=== PATIENT | male | born 1980 | race Caucasian/White ===

== ENCOUNTER 2017-10-15 14:03 | Emergency (ER) | payer SELFPAY ==
--- NOTE | 2017-10-15 15:29 | RAD REPORT ---
EXAM DESCRIPTION: RAD - Foot Left 3 View - 10/15/2017 3:22 pm CLINICAL HISTORY: PAIN COMPARISON: No comparisons FINDINGS: Moderate posterior calcaneal spur is noted. No fracture, dislocation or aggressive marrow lesion.
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
== END 2017-10-15 16:15 | disposition home or self-care (01) ==
LOC: ER 14:03
DX: M79.672 Pain in left foot (principal); Z88.0 Allergy status to penicillin
CPT/HCPCS: 99283

== ENCOUNTER 2017-11-29 22:11 | Emergency (ER) | payer SELFPAY ==
--- OUTSIDE RECORDS SUMMARY | 2017-11-29 22:14 | XMS REPORT ---
:1980 [facility] Address [address] [place] [address] Care Team Providers Name Role Phone UNKNOWN, REFFERING Primary Care Provider Unavailable MOHIT STACY M.D. Unavailable Unavailable Problems This patient has no known problems. Allergies, Adverse Reactions, Alerts This patient has no known allergies or adverse reactions. Medications This patient has no known medications. Results Test Description Test Time Test Comments Text Results Atomic Results Result Comments RPR, Qual 2017-04-24 12:17:00 Test Item Value Reference Range Comments RPR (test code=RPR) Non-Reactive Non-Reactive Thyroid Stimulating Hormone (TSH)2017-04-24 08:45:00 Test Item Value Reference Range Comments TSH (test code=TSH) 2.30 mIU/mL 0.270-4.200 Comprehensive Metabolic [id number] 08:37:00 Test Item Value Reference Range Comments Sodium (test code=NA) 136 mmol/L 135-145 Potassium (test code=K) 4.5 mmol/L 3.5-5.1 Chloride (test code=CL) 98 mmol/L 98-105 Carbon Dioxide (test 31 mmol/L 22-29 code=CO2) Glucose (test code=GLU) 95 mg/dL 70-115 Blood Urea Nitrogen 20 mg/dL 6-20 (test code=BUN) Creatinine (test 1.0 mg/dL 0.7-1.2 code=CREAT) Calcium (test code=CA) 9.6 mg/dL 8.3-10.5 Prot Total (test 7.6 g/dL 6.4-8.3 code=TP) Albumin (test code=ALB) 4.3 g/dL 3.5-5.2 A/G Ratio (test 1.3 Ratio code=AGRATIO) Globulin (test 3.3 2.9-3.1 code=GLOB) Bili Total (test 0.6 mg/dL 0.1-0.9 code=TBIL) Alk Phos (test 117 U/L 40-129 code=APHOS) AST (test code=AST) 26 U/L 1-40 ALT (test code=ALT) 18 U/L 1-41 BUN/Creatinine Ratio 20.0 (test code=BCRATIO) Anion Gap (test 7 mmol/L 7-16 code=AGAP) Estimated GFR (test >60 mL/min/1.73m2 eGFR (estimated Glomerular code=GFR) Filtration Rate) is an estimated value,calculated from the patient's serum creatinine using the MDRD equation.It is NOT the patient's actual GFR. The eGFR provides a more clinicallyuseful measure of kidney disease than serum creatinine alone.This calculation takes sex and race into account, if the informationis provided. If the race is not provided, and the patient isAfrican-Gibralt[place], multiply by 1.212. If sex is not provided, and thepatient is female, multiply by 0.742. Results for patients <18 years ofage have not been validated by the MDRD study and should be interpretedwith caution.eGFR Result Interpretation:eGFR > or=60 is in the Normal RangeeGFR < 60 may mean kidney diseaseeGFR < 15 may mean kidney failureRanges recommended by the National Kidney Foundation,http://nkdep.nih .gov Lipid [id number] 08:36:00 Test Item Value Reference Range Comments Cholesterol (test 187 mg/dL 0-200 code=CHOL) Triglycerides (test 169 mg/dL 9-200 code=TRIG) HDL (test code=HDL) 56 mg/dL 40-60 Chol/HDL (test 3.3 Ratio 0.0-5.0 code=CHOLPHDL) LDL, Calculated (test 97 0-130 (NOTE)RISK OF HEART code=LDLC) DISEASEPublished by [place] Heart AssociationAnalyte Optimal Boderline Increased RiskCHOL <200 200-239 >240TRIG <150 150-199 >200HDL Male: >60 <40HDL Female: >60 <50LDL <100 130-159 >160LDL NEAR OPTIMAL IS 100-129 VLDL (test code=VLDL) 34 mg/dL 5-40 LDL/HDL (test code=LDLPHDL) 2
[2017-11-29] MEDS ORDERED: TETANUS & DIPHTHERIA TOX,ADULT 0.5 ML VIAL ONE (22:49)
[2017-11-29] MEDS ORDERED: DERMABOND SKIN ADHESIVE TOP ONE (22:49)
[2017-11-30] MEDS ORDERED: NA CHLORIDE 0.9% 1,000 ML ONE (00:02)
[2017-11-30] MEDS ORDERED: KCL 20 MEQ/100 mL IVPB 20 MEQ/100 ML BAG IV ONE (00:02)
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
--- NOTE | 2017-11-30 00:13 | EDPHYS ---
Physician Documentation [facility] Name: Redd Wagner Age: 37 yrs Sex: Male : 1980 Arrival Date: 11/29/2017 Time: 22:17 Bed 8 Private MD: ED Physician Migue Adams HPI: 11/29 22:51 This 37 yrs old Male presents to ER via Law Enforcement with complaints of rn facial trauma. 22:51 The patient or guardian reports abrasion, injury, pain, swelling. The complaints affect rn the forehead, right eye, right cheek, nose, mouth and chin. Context of injury: The problem was sustained outdoors, resulted from a fall. Onset: The symptoms/episode began/occurred just prior to arrival. Severity of symptoms: At their worst the symptoms were mild, in the emergency department the symptoms have improved. The patient has not experienced similar symptoms in the past. Reports not sure what happened, police tell us he fell, reports alcohol earlier in day but not intoxicated, + abrasions to face and extremities, no LOC, not on blood thinners, no medical problems. No vision changes, no oral trauma, doesn't feel like anything broken.. Historical: - Allergies: 22:25 PENICILLINS; fc - Home Meds: 22:25 None [Active]; fc - PMHx: 22:25 Anxiety; Depression; Hypertension; fc - PSHx: 22:25 None; fc - Immunization history:: Last tetanus immunization: unknown. - Social history:: Smoking status: Patient/guardian denies using tobacco, Patient uses alcohol, occasionally. - Ebola Screening: : Patient negative for fever greater than or equal to 101.5 degrees Fahrenheit, and additional compatible Ebola Virus Disease symptoms Patient denies exposure to infectious person Patient denies travel to an Ebola-affected area in the 21 days before illness onset. - Family history:: not pertinent. - Hospitalizations: : No recent hospitalization is reported. ROS: 22:51 Constitutional: Negative for fever, chills, and weight loss, Eyes: Negative for injury, rn pain, redness, and discharge, Neck: Negative for injury, pain, and swelling, Cardiovascular: Negative for chest pain, palpitations, and edema, Respiratory: Negative for shortness of breath, cough, wheezing, and pleuritic chest pain, Abdomen/GI: Negative for abdominal pain, nausea, vomiting, diarrhea, and constipation, MS/Extremity: Negative for injury and deformity, Skin: + abrasions Neuro: Negative for headache, weakness, numbness, tingling, and seizure. Exam: 22:51 Constitutional: This is a well developed, well nourished patient who is awake, alert, rn and in no acute distress. Head/Face: multiple abrasions to face including nose/forehead/chin/nasal bridge, right supraorbital region with abrasion and small, subcentimeter open wound, no active bleeding, no foreign body, no fat protrusion. Eyes: Pupils equal round and reactive to light, extra-ocular motions intact. Lids and lashes normal. Neck: Trachea midline, no thyromegaly or masses palpated, and no cervical lymphadenopathy. Supple, full range of motion without nuchal rigidity, or vertebral point tenderness. No Meningismus. Cardiovascular: Regular rate and rhythm with a normal S1 and S2. No gallops, murmurs, or rubs. Normal PMI, no JVD. No pulse deficits. Respiratory: Lungs have equal breath sounds bilaterally, clear to auscultation and percussion. No rales, rhonchi or wheezes noted. No increased work of breathing, no retractions or nasal flaring. Abdomen/GI: Soft, non-tender, with normal bowel sounds. No distension or tympany. No guarding or rebound. No evidence of tenderness throughout. MS/ Extremity: Pulses equal, no cyanosis. Neurovascular intact. Full, normal range of motion. Equal circumference. Multiple abrasions to extremities, no deformities. Neuro: Awake and alert, GCS 15, oriented to person, place, time, and situation. Cranial nerves II-XII grossly intact. Motor strength 5/5 in all extremities. Sensory grossly intact. Cerebellar exam normal. Normal gait. Vital Signs: 22:10 BP 149 / 88; Pulse 103; Resp 18; Temp 98.5(O); Pulse Ox 96% on R/A; Weight 73.48 kg fc (R); Height 6 ft. 0 in. (182.88 cm) (R); Pain 0/10; 23:30 BP 129 / 99; Pulse 95; Resp 16; Pulse Ox 99% on R/A; ao 11/30 00:33 BP 94 / 52; Pulse 75; Resp 16; Temp 98.3; Pulse Ox 99% on R/A; Pain 0/10; ak1 11/29 22:10 Body Mass Index 21.97 (73.48 kg, 182.88 cm) fc Ben Coma Score: 11/29 22:51 Eye Response: spontaneous(4). Verbal Response: oriented(5). Motor Response: obeys rn commands(6). Total: 15. 11/30 00:11 Eye Response: spontaneous(4). Verbal Response: oriented(5). Motor Response: obeys rn commands(6). Total: 15. Laceration: 00:11 Wound Repair of 0.5cm ( 0.2in ) subcutaneous laceration to face. Distal rn neuro/vascular/tendon intact. Wound prep: Extensive cleansing by nurse, Wound explored. Skin closed with 1 thin layer Adhesive skin closure using Dermabond. Dressed with bandaid. Patient tolerated well. MDM: 11/29 22:21 Patient medically screened. rn 11/30 00:11 Differential diagnosis: Contusion of Hematoma on Laceration of Intracranial bleed- rn Concussion cerebral contusion. Data reviewed: vital signs, nurses notes, radiologic studies, and as a result, I will discharge patient. Counseling: I had a detailed discussion with the patient and/or guardian regarding: the historical points, exam findings, and any diagnostic results supporting the discharge/admit diagnosis, radiology results, the need for outpatient follow up, to return to the emergency department if symptoms worsen or persist or if there are any questions or concerns that arise at home. Special discussion: I discussed with the patient/guardian in detail that at this point there is no indication for admission to the hospital. It is understood, however, that if the symptoms persist or worsen the patient needs to return immediately for re-evaluation. 11/29 22:34 Order name: CT Head Brain wo Cont rn 11/29 22:34 Order name: CT Facial Bones W/O Con rn 11/29 22:39 Order name: Wound Care; Complete Time: 00:36 rn 11/29 22:39 Order name: Dermabond; Complete Time: 00:36 rn Administered Medications: 11/29 22:49 Drug: Tetanus-Diphtheria Toxoid Adult 0.5 ml {Shower Maid: [employer]. Exp: ao 12/24/2018. Lot #: [id number]. } Route: IM; Site: right deltoid; 11/30 00:36 Follow up: Response: No adverse reaction ao Disposition: 11/30/17 00:13 Discharged to Home. Impression: Facial abrasions, Facial laceration, Contusion of scalp. - Condition is Stable. - Discharge Instructions: Abrasion, Contusion, Tissue Adhesive Wound Care. - Medication Reconciliation Form, Thank You Letter, Antibiotic Education, Prescription Opioid Use form. - Follow up: Private Physician; When: As needed; Reason: Recheck today's complaints, Re-evaluation by your physician. - Problem is new. - Symptoms have improved. Signatures: Dispatcher [employer] EDMS Reina Drew RN RN fc Nieto, Roman, MD MD rn Krenek, Amber, RN RN ak1 Peña Broussard RN RN ao Corrections: (The following items were deleted from the chart) 00:51 00:13 11/30/2017 00:13 Discharged to Home. Impression: Facial abrasions; Facial ak1 laceration; Contusion of scalp. Condition is Stable. Forms are Medication Reconciliation Form, Thank You Letter, Antibiotic Education, Prescription Opioid Use. Follow up: Private Physician; When: As needed; Reason: Recheck today's complaints, Re-evaluation by your physician. Problem is new. Symptoms have improved. rn
--- NOTE | 2017-11-30 06:55 | RAD REPORT ---
EXAM DESCRIPTION: CT - Head Brain Wo Cont - 11/30/2017 5:31 am CLINICAL HISTORY: Fall, head and face trauma A preliminary report was provided at the time of the study and reviewed prior to final report. COMPARISON: None. TECHNIQUE: Axial 5 mm thick images of the head were obtained without IV contrast. All CT scans are performed using dose optimization technique as appropriate and may include automated exposure control or mA/KV adjustment according to patient size. FINDINGS: No intracranial hemorrhage, mass, edema or shift of mid-line structures. No acute infarcti on changes seen. No abnormal extra-axial fluid collections. Ventricles are normal. Mastoid air cells are clear. Facial bones, orbits and sinuses are separately detailed. No acute bony findings. IMPRESSION: Negative non-contrast CT head examination. Facial bones, orbits and sinuses are separat [place] detailed.
--- NOTE | 2017-11-30 07:54 | RAD REPORT ---
EXAM DESCRIPTION: CT - Facial Bones W/ Mpr - 11/30/2017 5:33 am CLINICAL HISTORY: Fall, right-sided facial trauma A preliminary report was provided at the time of the study and reviewed prior to final report. COMPARISON: None. TECHNIQUE: Axial 2 millimeter thick images of the facial bones were obtained with sagittal and coron al reconstruction imaging. All CT scans are performed using dose optimization technique as appropriate and may include automated exposure control or mA/KV adjustment according to patient size. FINDINGS: Contusion or edema changes are seen in the nasal soft tissues and overlying the right maxi lla. No foreign body. Nondisplaced nasal bone fracture is suspected. No acute nasal septum finding. N o other evidence for facial bone fracture. Condyles of the mandible are normally positioned. Mastoid air cells and paranasal sinuses are clear. No globe or orbital content abnormality. IMPRESSION: Suspected nondisplaced, nonangulated nasal bone fracture.
== END 2017-11-30 00:51 | disposition home or self-care (01) ==
LOC: ER 22:11
PROC: 0JQ10ZZ Repair Face Subcutaneous Tissue and Fascia, Open Approach (ICD-10-PCS; principal; 2017-11-30)
DX: S01.81XA Laceration without foreign body of other part of head, initial encounter (principal); S00.03XA Contusion of scalp, initial encounter; S00.81XA Abrasion of other part of head, initial encounter; W19.XXXA Unspecified fall, initial encounter; Y93.89 Activity, other specified; Y92.9 Unspecified place or not applicable; Z88.0 Allergy status to penicillin; Z23 Encounter for immunization
CPT/HCPCS: 70450; 70486; 76377; 90714; 99284; J7030

== ENCOUNTER 2018-03-08 19:42 | Observation (INO) | payer SELFPAY ==
--- OUTSIDE RECORDS SUMMARY | 2018-03-08 19:44 | XMS REPORT ---
:1980 Author Organization [facility] Address [address] [place] [address] Care Team Providers Name Role Phone UNKNOWN, [...] (test code=TSH) 2.30 mIU/mL 0.270-4.200 Comprehensive Metabolic [id number] 08:37:00 Test Item Value Reference Range Comments [...] race is not provided, and the patient isAfrican-Solomon Islander, multiply by 1.212. If sex is not provided, and thepatient is female, multiply by 0.742. Results for patients <18 years ofage have not been validated by the MDRD study and should be interpretedwith caution.eGFR Result Interpretation:eGFR > or=60 is in the Normal RangeeGFR < 60 may mean kidney diseaseeGFR < 15 may mean kidney failureRanges recommended by the National Kidney Foundation,http://nkdep.nih .gov Lipid [id number] 08:36:00 Test Item Value Reference Range Comments Cholesterol (test 187 mg/dL 0-200 code=CHOL) Triglycerides (test 169 mg/dL 9-200 code=TRIG) HDL (test code=HDL) 56 mg/dL 40-60 Chol/HDL (test 3.3 Ratio 0.0-5.0 code=CHOLPHDL) LDL, Calculated (test 97 0-130 (NOTE)RISK OF HEART code=LDLC) DISEASEPublished by Solomon Islander Heart AssociationAnalyte Optimal Boderline Increased RiskCHOL <200 200-239 >240TRIG <150 150-199 >200HDL Male: >60 <40HDL Female: >60 <50LDL <100 130-159 >160LDL NEAR OPTIMAL IS 100-129 VLDL (test code=VLDL) 34 mg/dL 5-40 LDL/HDL (test code=LDLPHDL) 2
[2018-03-08 20:37] LABS: Absolute Lymphocytes (CBC) 2.8 K/uL (0.7-4.9); Absolute Monocytes 0.9 K/uL (0.1-1.3); Absolute Neutrophil 9.3 K/uL (1.8-8.0); Basophils % 0.5 % (0-1.3); Eosinophils % 0.6 % (0-4.4); Hematocrit 43.6 % (39.6-49.0); Lymphocytes % 21.4 % (15.3-44.8); MCH 28.6 pg (27.0-35.0); MCV 83.1 fL (80-100); Monocytes % 6.6 % (3.3-12.3); RBC Red Blood Cell Count 5.24 M/uL (4.33-5.43)
[2018-03-08] MEDS ORDERED: NA CHLORIDE 0.9% 1,000 ML ONE (20:56)
--- NOTE | 2018-03-08 20:56 | RAD REPORT ---
EXAM DESCRIPTION: RAD - Chest Single View - 03/08/2018 8:47 pm CLINICAL HISTORY: CHEST PAIN Chest pain. COMPARISON: Chest Single View dated 10/17/2016; Chest Single View dated 09/16/2016; Chest Single View dated 09/14/2016; Chest Single View dated 02/23/2016 FINDINGS: Portable technique limits examination quality. The lungs are grossly clear. The heart is normal in size. No displaced fractures. IMPRESSION: No acute intrathoracic process suspected.
[2018-03-08 21:01] LABS: BUN Blood Urea Nitrogen 12 mg/dL (7-18); Bicarbonate 22 mmol/L (21-32); Creatine Phosphokinase 880 U/L (39-308); Glucose Level 83 mg/dL (74-106); Sodium Level 138 mmol/L (136-145); Troponin (Emerg Dept Use Only) < 0.02 ng/mL (0.0-0.045)
--- NOTE | 2018-03-08 21:09 | EDPHYS ---
Physician Documentation [facility] Name: Redd Wagner Age: 38 yrs Sex: Male : 1980 Arrival Date: 03/08/2018 Time: 19:45 Bed 23 Private MD: ED Physician Kvng Schroeder HPI: 03/08 20:50 This 38 yrs old Male presents to ER via EMS with complaints of Chest Pain. gs 20:50 The patient or guardian reports chest pain that is located primarily in the anterior gs chest wall. The pain does not radiate. Associated signs and symptoms: Pertinent positives: cough, Pertinent negatives: shortness of breath. The chest pain is described as a heaviness. Duration: The patient or guardian reports multiple episodes, that are intermittent, that wax and wane, with no pattern. Modifying factors: The symptoms are alleviated by nothing. the symptoms are aggravated by nothing. Severity of pain: At its worst the pain was moderate in the emergency department the pain has improved markedly. The patient has experienced similar episodes in the past, multiple times. onset 2 weeks ago. Historical: - Allergies: 19:48 PENICILLINS; mg2 - Home Meds: 19:48 None [Active]; mg2 - PMHx: 19:48 Anxiety; Hypertension; Depression; mg2 - PSHx: 19:48 None; mg2 - Immunization history:: Flu vaccine is not up to date. - Social history:: Smoking status: Patient/guardian denies using tobacco, Patient uses alcohol, patient/guardian reports recent binge of alcohol consumption. street drugs, cocaine. - Ebola Screening: : No symptoms or risks identified at this time. ROS: 20:50 All other systems are negative. gs Exam: 20:50 Head/Face: Normocephalic, atraumatic. Eyes: Pupils equal round and reactive to light, gs extra-ocular motions intact. Lids and lashes normal. Conjunctiva and sclera are non-icteric and not injected. Cornea within normal limits. Periorbital areas with no swelling, redness, or edema. ENT: Nares patent. No nasal discharge, no septal abnormalities noted. Tympanic membranes are normal and external auditory canals are clear. Oropharynx with no redness, swelling, or masses, exudates, or evidence of obstruction, uvula midline. Mucous membranes moist. Neck: Trachea midline, no thyromegaly or masses palpated, and no cervical lymphadenopathy. Supple, full range of motion without nuchal rigidity, or vertebral point tenderness. No Meningismus. Chest/axilla: Normal chest wall appearance and motion. Nontender with no deformity. No lesions are appreciated. Cardiovascular: Regular rate and rhythm with a normal S1 and S2. No gallops, murmurs, or rubs. Normal PMI, no JVD. No pulse deficits. Respiratory: Lungs have equal breath sounds bilaterally, clear to auscultation and percussion. No rales, rhonchi or wheezes noted. No increased work of breathing, no retractions or nasal flaring. Abdomen/GI: Soft, non-tender, with normal bowel sounds. No distension or tympany. No guarding or rebound. No evidence of tenderness throughout. Back: No spinal tenderness. No costovertebral tenderness. Full range of motion. Skin: Warm, dry with normal turgor. Normal color with no rashes, no lesions, and no evidence of cellulitis. MS/ Extremity: Pulses equal, no cyanosis. Neurovascular intact. Full, normal range of motion. Neuro: Awake and alert, GCS 15, oriented to person, place, time, and situation. Cranial nerves II-XII grossly intact. Motor strength 5/5 in all extremities. Sensory grossly intact. Cerebellar exam normal. Normal gait. 20:50 Constitutional: The patient appears alert, awake. 20:50 ECG was reviewed by the Attending Physician. Vital Signs: 19:47 BP 140 / 91; Pulse 86; Resp 18; Temp 97.2(O); Pulse Ox 98% on R/A; Weight 77.11 kg; mg2 Height 5 ft. 11 in. (180.34 cm); Pain 5/10; 21:07 BP 129 / 59; Pulse 75; Resp 18; Pulse Ox 100% on R/A; Pain 2/10; mg2 23:13 BP 120 / 64; Pulse 77; Resp 18; Temp 98; Pulse Ox 98% on R/A; Pain 0/10; mg2 19:47 Body Mass Index 23.71 (77.11 kg, 180.34 cm) mg2 MDM: 20:05 Patient medically screened. 03/08 20:01 Order name: Basic Metabolic Panel; Complete Time: 21:02 03/08 20:01 Order name: CBC with Diff; Complete Time: 20:56 03/08 20:01 Order name: Troponin (emerg Dept Use Only); Complete Time: 21:02 03/08 20:01 Order name: CPK; Complete Time: 21:02 03/08 21:05 Order name: Urine Drug Screen 03/08 21:06 Order name: Urine Drug Screen [facility] 03/08 20:01 Order name: XRAY Chest (1 view); Complete Time: 21:02 03/08 20:01 Order name: EKG; Complete Time: 20:02 03/08 20:01 Order name: Cardiac monitoring; Complete Time: 20:05 03/08 20:01 Order name: EKG - Nurse/Tech; Complete Time: 20:05 03/08 20:01 Order name: IV Saline Lock; Complete Time: 20:49 03/08 20:01 Order name: Labs collected and sent; Complete Time: 20:49 03/08 22:08 Order name: Urine Dipstick--Ancillary (enter results) ut 03/08 20:01 Order name: O2 Per Protocol; Complete Time: 20:49 03/08 20:01 Order name: O2 Sat Monitoring; Complete Time: 20:49 gs EC:50 Rate is 84 beats/min. Rhythm is regular. WV interval is normal. QRS interval is normal. gs T waves are Normal. No ST changes noted. Clinical impression: Abnormal EKG without significant change. Interpreted by me. Administered Medications: 20:49 Drug: NS 0.9% 1000 ml Route: IV; Rate: 1 bolus; Site: right antecubital; mg2 23:14 Follow up: Response: No adverse reaction; IV Status: Completed infusion mg2 Disposition: 03/08/18 21:08 Hospitalization ordered by Thaddeus Rodgers for Observation. Preliminary diagnosis are Rhabdomyolysis, Cocaine abuse, Alcohol abuse. - Bed requested for Telemetry/MedSurg (observation). - Status is Observation. mg2 - Condition is Stable. - Problem is an ongoing problem. - Symptoms are unchanged. UTI on Admission? No Signatures: Dispatcher [employer] [facility] Renetta Miranda RN RN Kvng Schroeder MD MD Robert Cleary RN RN mg2 Corrections: (The following items were deleted from the chart) 23:02 21:08 Hospitalization Ordered by Thaddeus Rodgers MD for Observation. Preliminary cg diagnosis is Rhabdomyolysis; Cocaine abuse; Alcohol abuse. Bed requested for Telemetry/MedSurg (observation). Status is Observation. Condition is Stable. Problem is an ongoing problem. Symptoms are unchanged. UTI on Admission? No. gs 23:41 23:02 03/08/2018 21:08 Hospitalization Ordered by Thaddeus Rodgers MD for Observation. mg2 Preliminary diagnosis is Rhabdomyolysis; Cocaine abuse; Alcohol abuse. Bed requested for Telemetry/MedSurg (observation). Status is Observation. Condition is Stable. Problem is an ongoing problem. Symptoms are unchanged. UTI on Admission? No. cg
--- NOTE | 2018-03-08 21:09 | ER ---
Nurse's Notes [facility] Name: Redd Wagner Age: 38 yrs Sex: Male : 1980 Arrival Date: 03/08/2018 Time: 19:45 Bed 23 Private MD: Diagnosis: Rhabdomyolysis;Cocaine abuse;Alcohol abuse Presentation: 03/08 19:45 Presenting complaint: EMS states: patient complains of chest pain non radiating, been mg2 using cocaine 2 hours ago and been binge drinking alcohol for the last 3 days. Transition of care: patient was not received from another setting of care. Onset of symptoms was March 08, 2018. Risk Assessment: Do you want to hurt yourself or someone else? Patient reports no desire to harm self or others. Initial Sepsis Screen: Does the patient meet any 2 criteria? No. Patient's initial sepsis screen is negative. Does the patient have a suspected source of infection? No. Patient's initial sepsis screen is negative. Care prior to arrival: None. 19:45 Method Of Arrival: EMS: [facility] mg2 19:45 Acuity: DEEPA 3 mg2 Historical: - Allergies: 19:48 PENICILLINS; mg2 - Home Meds: 19:48 None [Active]; mg2 - PMHx: 19:48 Anxiety; Hypertension; Depression; mg2 - PSHx: 19:48 None; mg2 - Immunization history:: Flu vaccine is not up to date. - Social history:: Smoking status: Patient/guardian denies using tobacco, Patient uses alcohol, patient/guardian reports recent binge of alcohol consumption. street drugs, cocaine. - Ebola Screening: : No symptoms or risks identified at this time. Screenin:59 Abuse screen: Denies threats or abuse. Denies injuries from another. Nutritional mg2 screening: No deficits noted. Tuberculosis screening: No symptoms or risk factors identified. Fall Risk IV access (20 points). Assessment: 20:57 General: Appears in no apparent distress. comfortable, Behavior is calm, cooperative. mg2 Pain: Complains of pain in chest Pain does not radiate. Pain currently is 4 out of 10 on a pain scale. Quality of pain is described as discomfort. Neuro: Level of Consciousness is awake, alert, obeys commands, Oriented to person, place, time, situation. Cardiovascular: Reports chest pain, Capillary refill < 3 seconds Patient's skin is warm and dry. Respiratory: Airway is patent Respiratory effort is even, unlabored, Respiratory pattern is regular, symmetrical. GI: Reports nausea. : No signs and/or symptoms were reported regarding the genitourinary system. EENT: No signs and/or symptoms were reported regarding the EENT system. Derm: Skin is intact, is healthy with good turgor, Skin is pink, warm \T\ dry. normal. Musculoskeletal: No deficits noted. 23:15 Reassessment: Patient appears in no apparent distress at this time. Patient and/or mg2 family updated on plan of care and expected duration. Pain level reassessed. Patient is alert, oriented x 3, equal unlabored respirations, skin warm/dry/pink. advised for admission, patient agreed. Vital Signs: 19:47 BP 140 / 91; Pulse 86; Resp 18; Temp 97.2(O); Pulse Ox 98% on R/A; Weight 77.11 kg; mg2 Height 5 ft. 11 in. (180.34 cm); Pain 5/10; 21:07 BP 129 / 59; Pulse 75; Resp 18; Pulse Ox 100% on R/A; Pain 2/10; mg2 23:13 BP 120 / 64; Pulse 77; Resp 18; Temp 98; Pulse Ox 98% on R/A; Pain 0/10; mg2 19:47 Body Mass Index 23.71 (77.11 kg, 180.34 cm) mg2 ED Course: 19:45 Patient arrived in ED. mg2 19:47 Triage completed. mg2 19:48 Patient has correct armband on for positive identification. mg2 19:56 Kvng Schroeder MD is Attending Physician. gs 20:25 Robert Cleary, TARIK is Primary Nurse. mg2 20:47 XRAY Chest (1 view) In Process Unspecified. EDMS 20:59 Arm band placed on. mg2 20:59 No provider procedures requiring assistance completed. Inserted saline lock: 20 gauge mg2 in right antecubital area, using aseptic technique. Blood collected. 21:08 Thaddeus Rodgers MD is Hospitalizing Provider. gs 23:32 Patient admitted, IV remains in place. mg2 Administered Medications: 20:49 Drug: NS 0.9% 1000 ml Route: IV; Rate: 1 bolus; Site: right antecubital; mg2 23:14 Follow up: Response: No adverse reaction; IV Status: Completed infusion mg2 Outcome: 21:08 Decision to Hospitalize by Provider. 23:32 Admitted to Med/surg accompanied by tech, via stretcher, room 219, with chart, Report mg2 called to TARIK Riggins 23:32 Condition: stable 23:32 Instructed on the need for admit, Demonstrated understanding of instructions. 23:41 Patient left the ED. mg2 Signatures: Dispatcher [employer] EDKvng Blackwood MD MD gs [place]ose, Michele RN RN mg2
[2018-03-08 22:14] LABS: Urine Blood NEGATIVE (NEG); Urine Glucose NEGATIVE (NEG); Urine Protein NEGATIVE (NEG); Urine Specific Gravity 1.015 (1.005-1.030); Urine pH 5.5 (5.0-7.0)
[2018-03-08 22:20] LABS: Barbiturates NEGATIVE (NEGATIVE); Benzodiazepines NEGATIVE (NEGATIVE); Cocaine POSITIVE (NEGATIVE); METHAMPHETAM NEGATIVE (NEGATIVE); Methadone NEGATIVE (NEGATIVE); Opiates NEGATIVE (NEGATIVE); Phencyclidine NEGATIVE (NEGATIVE); THC Cannibis NEGATIVE (NEGATIVE)
[2018-03-08 23:53] VITALS: O2SAT 98
[2018-03-09 02:41] VITALS: BMI 23.7
[2018-03-09 05:05] LABS: Urine Appearance CLEAR; Urine Bilirubin NEGATIVE (NEG); Urine Blood NEGATIVE (NEG); Urine Color YELLOW; Urine Glucose NEGATIVE (NEG); Urine Protein NEGATIVE (NEG); Urine Urobilinogen 0.2 mg/dL (0.2-1.0); Urine pH 5.5 (5.0-7.0)
[2018-03-09 05:24] LABS: Urine Microscopic Reflex NO UMIC
[2018-03-09 07:03] LABS: Absolute Lymphocytes (CBC) 2.5 K/uL (0.7-4.9); Absolute Monocytes 0.8 K/uL (0.1-1.3); Absolute Neutrophil 5.2 K/uL (1.8-8.0); Basophils % 0.9 % (0-1.3); Eosinophils % 1.7 % (0-4.4); Hematocrit 42.9 % (39.6-49.0); Lymphocytes % 28.4 % (15.3-44.8); MCH 28.8 pg (27.0-35.0); MCV 83.2 fL (80-100); MPV 7.7 fL (7.6-11.3); Monocytes % 9.1 % (3.3-12.3); RBC Red Blood Cell Count 5.16 M/uL (4.33-5.43)
--- NOTE | 2018-03-09 07:06 | EKG ---
Test Date: 2018-03-08 Test Time: 19:50:54 Picture Frame Maker: TEREZA MEASUREMENT RESULTS: Intervals: Rate: 84 WA: 166 QRSD: 98 QT: 370 QTc: 437 [place]: P: 53 WA: 166 QRS: 70 T: 77 INTERPRETIVE STATEMENTS: Normal sinus rhythm Incomplete right bundle branch block Borderline ECG Compared to ECG 04/22/2017 20:38:48 Incomplete right bundle-branch block now present Electronically Signed On 03-09-18 07:05:20 [employer] SALES COORDINATOR by Gilberto Palmer
[2018-03-09 07:07] LABS: Protime INR 1.02
[2018-03-09 07:19] LABS: Albumin 3.5 g/dL (3.4-5.0); Bilirubin Direct 0.2 mg/dL (0-0.2); Bilirubin Total 1.4 mg/dL (0.2-1.0); Protein, Total 6.8 g/dL (6.4-8.2)
[2018-03-09 10:10] VITALS: BP 138/69; TEMP 98.9
[2018-03-09] MEDS: NA CHLORIDE 0.9% 1,000 ML IV SCH ×2 (10:13)
--- NOTE | 2018-03-09 13:25 | P.HP ---
Certification for Inpatient Patient admitted to: Observation With expected LOS: <2 Midnights Patient will require the following post-hospital care: None Practitioner: I am a practitioner with admitting privileges, knowledge of patient current condition, hospital course, and medical plan of care. Services: Services provided to patient in accordance with Admission requirements found in Title 42 Section 412.3 of the Code of Federal Regulations Patient History Date of Service: 03/08/18 Reason for admission: Altered mental status / polysubstance abuse/elevated CPK levels History of Present Illness: patient is a 38-year-old gentleman has been using cocaine and alcohol. Patient was intoxicated and was really not making a lot of sense on arrival. He had some chest pain and he was admitted to the hospital for further workup. Patient's troponins were negative initially and his EKG did not show any acute abnormalities. Patient's CPK is elevated and this may indicate he has rhabdo. However will recheck his levels and hydrate him aggressively. Monitor his blood pressure and other hemodynamics. At this time he will need observation and hopefully will discharge him in the morning. Allergies Penicillins Allergy (Intermediate, Verified 03/08/18 23:52) Hives/Rash Home Medications: NK [No Home Meds] 03/08/18 - Past Medical/Surgical History Has patient received pneumonia vaccine in the past: No Diabetic: No -: HTN -: Anxiety; Depression -: Drug abuse Past Surgical History: Patient denies surgical history - Family History none History Unknown: Yes - Social History Smoking Status: Never smoker Alcohol use: Yes CD- Drugs: Yes Caffeine use: Yes Place of Residence: Home Review of Systems 10-point ROS is otherwise unremarkable Physical Examination - Vital Signs Temperature: 98.9 F Blood Pressure: 138/69 Pulse: 85 Respirations: 18 Pulse Ox (%): 97 - Physical Exam General: Alert, In no apparent distress, Oriented x3 HEENT: Atraumatic, PERRLA, Mucous membr. moist/pink, EOMI, Sclerae nonicteric Neck: Supple, 2+ carotid pulse no bruit, No LAD, Without JVD or thyroid abnormality Respiratory: Clear to auscultation bilaterally, Normal air movement Cardiovascular: Regular rate/rhythm, Normal S1 S2 Gastrointestinal: Normal bowel sounds, Soft and benign, Non-distended, No tenderness Musculoskeletal: No clubbing, No swelling, No tenderness Integumentary: No rashes Neurological: Normal gait, Normal speech, Normal strength at 5/5 x4 extr, Normal tone, Sensation intact, Cranial nerves 3-12 intact, Normal affect Lymphatics: No axilla or inguinal lymphadenopathy - Studies Laboratory Data (last 24 hrs) 03/08/18 20:25: WBC 13.1 H, Hgb 15.0, Hct 43.6, Plt Count 305 03/08/18 20:25: Sodium 138, Potassium 4.0, BUN 12, Creatinine 1.20, Glucose 83 Assessment & Plan - Problems (Diagnosis) (1) Chest pain, rule out acute myocardial infarction Current Visit: Yes Status: Acute (2) Altered awareness, transient Current Visit: Yes Status: Acute (3) Alcohol abuse Current Visit: Yes Status: Acute (4) Cocaine abuse Current Visit: Yes Status: Acute (5) Rhabdomyolysis Current Visit: Yes Status: Acute - Plan 1. Serial troponins and EKG 2. Anti-platelet therapy, anti coagulation, beta-hank, statin, and O2 as needed 3. IV fluids and check CPK level 4. Possible DC in the am Discharge Plan: Home Plan to discharge in: 24 Hours - Advance Directives Does patient have a Living Will: No Does patient have a Durable POA for Healthcare: No - Code Status/Comfort Care Code Status Assessed: Yes Code Status: Full Code Critical Care: No Time Spent Managing PTS Care (In Minutes): 40
== END 2018-03-09 15:00 | disposition home or self-care (01) ==
LOC: ER 19:42 → ERHOLD 22:54 → 2ND 23:26
PROVIDERS: ADMIT Hospitalist; ATTEND Hospitalist
DX: R07.9 Chest pain, unspecified (principal); R40.4 Transient alteration of awareness; F14.10 Cocaine abuse, uncomplicated; F10.10 Alcohol abuse, uncomplicated; M62.82 Rhabdomyolysis; F41.8 Other specified anxiety disorders; I10 Essential (primary) hypertension; Z88.0 Allergy status to penicillin
CPT/HCPCS: 36415; 71045; 80048; 80053; 80307; 81003; 82248; 82550; 84484; 85025; 85610; 85730; 93005; 96360; 96361; 99285; G0378; J7030

== ENCOUNTER 2018-06-14 10:39 | Emergency (ER) | payer SELFPAY ==
--- OUTSIDE RECORDS SUMMARY | 2018-06-14 10:41 | XMS REPORT ---
:1980 [facility] [address] [place] [address] Care Team Providers Name Role Phone UNKNOWN, [...] (test code=TSH) 2.30 mIU/mL 0.270-4.200 Comprehensive Metabolic [id number] 08:37:00 Test Item Value Reference Range Comments [...] race is not provided, and the patient isAfrican-Ugandan, multiply by 1.212. If sex is not provided, and thepatient is female, multiply by 0.742. Results for patients <18 years ofage have not been validated by the MDRD study and should be interpretedwith caution.eGFR Result Interpretation:eGFR > or=60 is in the Normal RangeeGFR < 60 may mean kidney diseaseeGFR < 15 may mean kidney failureRanges recommended by the National Kidney Foundation,http://nkdep.nih .gov Lipid [id number] 08:36:00 Test Item Value Reference Range Comments Cholesterol (test 187 mg/dL 0-200 code=CHOL) Triglycerides (test 169 mg/dL 9-200 code=TRIG) HDL (test code=HDL) 56 mg/dL 40-60 Chol/HDL (test 3.3 Ratio 0.0-5.0 code=CHOLPHDL) LDL, Calculated (test 97 0-130 (NOTE)RISK OF HEART code=LDLC) DISEASEPublished by [place]and[place] Heart AssociationAnalyte Optimal Boderline Increased RiskCHOL <200 200-239 >240TRIG <150 150-199 >200HDL Male: >60 <40HDL Female: >60 <50LDL <100 130-159 >160LDL NEAR OPTIMAL IS 100-129 VLDL (test code=VLDL) 34 mg/dL 5-40 LDL/HDL (test code=LDLPHDL) 2
[2018-06-14] MEDS ORDERED: MEPERIDINE HCL 25 MG/0.5 ML ONE (11:23)
[2018-06-14] MEDS ORDERED: DIAZEPAM 5 MG TABLET ONE (11:24)
[2018-06-14] MEDS ORDERED: KETOROLAC 30 MG/ML INJ ONE (11:24)
[2018-06-14] MEDS ORDERED: DEXAMETHASONE 4 MG/ML VIAL ONE (11:28)
--- NOTE | 2018-06-14 11:44 | EDPHYS ---
Physician Documentation [facility] Name: Redd Wagner Age: 38 yrs Sex: Male : 1980 Arrival Date: 06/14/2018 Time: 10:44 Bed 26 Private MD: ED Physician Migue Adams HPI: 06/14 11:03 This 38 yrs old Male presents to ER via Ambulatory with complaints of Low rn Back Pain. 11:03 The patient presents with pain that is acute. The symptoms are located in the low back. rn The pain does not radiate. Onset: The symptoms/episode began/occurred just prior to arrival. Modifying factors: The patient symptoms are alleviated by nothing, the patient symptoms are aggravated by any movement. Severity of symptoms: At their worst the symptoms were moderate, in the emergency department the symptoms have improved. The patient has experienced a previous episode. Reports binge drinking last night, this morning threw up, immediately when throwing up felt left low back hurt, hurts to bend and rotate, no radiation, this has happened before, denies focal neurological complaints, is ambulatory, no bowel/bladder problems. No iv drugs. No trauma. . Historical: - Allergies: 10:46 PENICILLINS; ss - PMHx: 10:46 Anxiety; Depression; Hypertension; ss - PSHx: 10:46 None; ss - Immunization history:: Adult Immunizations up to date. - Social history:: Smoking status: unknown. - Ebola Screening: : Patient denies exposure to infectious person Patient denies travel to an Ebola-affected area in the 21 days before illness onset. - Family history:: not pertinent. - Hospitalizations: : No recent hospitalization is reported. ROS: 11:03 Constitutional: Negative for fever, chills, and weight loss, Neck: Negative for injury, rn pain, and swelling, Cardiovascular: Negative for chest pain, palpitations, and edema, Respiratory: Negative for shortness of breath, cough, wheezing, and pleuritic chest pain, Abdomen/GI: Negative for abdominal pain, nausea, vomiting, diarrhea, and constipation, Back: Negative for injury, + low back pain MS/Extremity: Negative for injury and deformity, Skin: Negative for injury, rash, and discoloration, Neuro: Negative for headache, weakness, numbness, tingling, and seizure. Exam: 11:03 Constitutional: This is a well developed, well nourished patient who is awake, alert, rn and in no acute distress. Head/Face: Normocephalic, atraumatic. ENT: MMM Abdomen/GI: soft, non-tender Back: No spinal tenderness. No skin changes, + left lower lumbar muscular tenderness, no swelling. Skin: Warm, dry MS/ Extremity: Pulses equal, no cyanosis. Neurovascular intact. Full, normal range of motion. Equal circumference. Neuro: Awake and alert, GCS 15, oriented to person, place, time, and situation. Cranial nerves II-XII grossly intact. Motor strength 5/5 in all extremities. Sensory grossly intact. Cerebellar exam normal. Normal gait. Vital Signs: 10:46 BP 147 / 81; Pulse 85; Resp 19; Pulse Ox 99% on R/A; Weight 81.65 kg; Height 5 ft. 11 ss in. (180.34 cm); Pain 10/10; 10:46 Temp 98.6(TE); ss 11:15 BP 132 / 76; Pulse 86; Resp 20; Pulse Ox 100% on R/A; Pain 10/10; em 12:08 BP 144 / 89; Pulse 90; Resp 18; Pulse Ox 99% on R/A; Pain 7/10; em 10:46 Body Mass Index 25.10 (81.65 kg, 180.34 cm) ss MDM: 10:48 Patient medically screened. rn 11:42 Differential diagnosis: strain. Data reviewed: vital signs, nurses notes, and as a rn result, I will discharge patient. Counseling: I had a detailed discussion with the patient and/or guardian regarding: the historical points, exam findings, and any diagnostic results supporting the discharge/admit diagnosis, the need for outpatient follow up, to return to the emergency department if symptoms worsen or persist or if there are any questions or concerns that arise at home. Response to treatment: the patient's symptoms have mildly improved after treatment, and as a result, I will discharge patient. Special discussion: I discussed with the patient/guardian in detail that at this point there is no indication for admission to the hospital. It is understood, however, that if the symptoms persist or worsen the patient needs to return immediately for re-evaluation. ED course: No focal neuro deficits or complaints, + muscle strain after vomiting, improved, will dc home with valium and OTC anti-inflammatories. . Administered Medications: 11: Drug: TORadol 30 mg Route: IM; Site: left deltoid; em 12:07 Follow up: Response: No adverse reaction; Pain is decreased em 11: Drug: Decadron 10 mg Route: IM; Site: left gluteus; em 12:08 Follow up: Response: No adverse reaction; Pain is decreased em 11: Drug: Valium 5 mg Route: PO; em 12:08 Follow up: Response: No adverse reaction; Pain is decreased em Disposition: 06/14/18 11:43 Discharged to Home. Impression: Strain of muscle, fascia and tendon of lower back, Muscle spasm of back. - Condition is Stable. - Discharge Instructions: Back Pain, Adult, Muscle Cramps and Spasms, Muscle Strain. - Prescriptions for Ibuprofen 800 mg Oral Tablet - take 1 tablet by ORAL route every 12 hours As needed take with food; 20 tablet. Valium 2 mg Oral Tablet - take 1 tablet by ORAL route every 12 hours As needed; 8 tablet. Medrol (Brock) 4 mg Oral Tablets, Dose Pack - take 1 tablet by ORAL route as directed - follow package instructions; 1 packet. - Medication Reconciliation Form, Thank You Letter, Antibiotic Education, Prescription Opioid Use, Work release form form. - Follow up: Private Physician; When: As needed; Reason: Recheck today's complaints, Re-evaluation by your physician. - Problem is new. - Symptoms have improved. Signatures: Brady Turner, INTERNETWORKING TECHNICIAN INTERNETWORKING TECHNICIAN em Migue Adams MD MD rn Smirch, Shelby, RN RN Corrections: (The following items were deleted from the chart) 12:10 11:43 06/14/2018 11:43 Discharged to Home. Impression: Strain of muscle, fascia and em tendon of lower back; Muscle spasm of back. Condition is Stable. Forms are Medication Reconciliation Form, Thank You Letter, Antibiotic Education, Prescription Opioid Use. Follow up: Private Physician; When: As needed; Reason: Recheck today's complaints, Re-evaluation by your physician. Problem is new. Symptoms have improved. rn
--- NOTE | 2018-06-14 11:44 | ER ---
Nurse's Notes [facility] Name: Redd Wagner Age: 38 yrs Sex: Male : 1980 Arrival Date: 06/14/2018 Time: 10:44 Bed 26 Private MD: Diagnosis: Strain of muscle, fascia and tendon of lower back;Muscle spasm of back Presentation: 06/14 10:44 Presenting complaint: Patient states: severe low back pain after vomiting this morning. ss Pt states, "I've been withdrawing a little from alcohol. I took a little sip before I went to work this morning, and it made me sick so I vomited and that's when my back started hurting.". Transition of care: patient was not received from another setting of care. Onset of symptoms was June 14, 2018. Risk Assessment: Do you want to hurt yourself or someone else? Patient reports no desire to harm self or others. Initial Sepsis Screen: Does the patient meet any 2 criteria? No. Patient's initial sepsis screen is negative. Does the patient have a suspected source of infection? No. Patient's initial sepsis screen is negative. Care prior to arrival: None. 10:44 Method Of Arrival: Ambulatory 10:44 Acuity: DEEPA 3 ss Historical: - Allergies: 10:46 PENICILLINS; ss - PMHx: 10:46 Anxiety; Depression; Hypertension; ss - PSHx: 10:46 None; ss - Immunization history:: Adult Immunizations up to date. - Social history:: Smoking status: unknown. - Ebola Screening: : Patient denies exposure to infectious person Patient denies travel to an Ebola-affected area in the 21 days before illness onset. - Family history:: not pertinent. - Hospitalizations: : No recent hospitalization is reported. Screenin:15 Abuse screen: Denies threats or abuse. Nutritional screening: No deficits noted. em Tuberculosis screening: No symptoms or risk factors identified. Fall Risk None identified. Assessment: 11:15 General: Appears in no apparent distress. uncomfortable, Behavior is cooperative, em anxious, restless. Pain: Complains of pain in lumbar area, left low back and right low back Pain currently is 10 out of 10 on a pain scale. Aggravated by increased activity, repositioning. Neuro: Level of Consciousness is awake, alert, obeys commands, Oriented to person, place, time, situation, Denies paresthesias numbness. Cardiovascular: Capillary refill < 3 seconds Patient's skin is warm and dry. Respiratory: Airway is patent Respiratory effort is even, unlabored, Respiratory pattern is regular, symmetrical. GI: Abdomen is flat. Derm: Skin is intact, is healthy with good turgor, Skin is pink, warm \\T\\ dry. Musculoskeletal: Capillary refill < 3 seconds, Range of motion: intact in all extremities. 11:15 Reassessment: I agree with assessment completed by Brady Turner LVN . aa5 12:09 Reassessment: Patient appears in no apparent distress at this time. Patient and/or em family updated on plan of care and expected duration. Pain level reassessed. Patient is alert, oriented x 3, equal unlabored respirations, skin warm/dry/pink. pt refused wheelchair, pt ambulated with family Patient states feeling better. Vital Signs: 10:46 BP 147 / 81; Pulse 85; Resp 19; Pulse Ox 99% on R/A; Weight 81.65 kg; Height 5 ft. 11 ss in. (180.34 cm); Pain 10/10; 10:46 Temp 98.6(TE); ss 11:15 BP 132 / 76; Pulse 86; Resp 20; Pulse Ox 100% on R/A; Pain 10/10; em 12:08 BP 144 / 89; Pulse 90; Resp 18; Pulse Ox 99% on R/A; Pain 7/10; em 10:46 Body Mass Index 25.10 (81.65 kg, 180.34 cm) ED Course: 10:44 Patient arrived in ED. ss 10:46 Triage completed. ss 10:46 Arm band placed on right wrist. ss 10:48 Migue Adams MD is Attending Physician. rn 11:06 Brady Turner LVN is Primary Nurse. em 11:15 Patient has correct armband on for positive identification. Bed in low position. Call em light in reach. Adult w/ patient. Pulse ox on. NIBP on. 12:08 No provider procedures requiring assistance completed. Patient did not have IV access em during this emergency room visit. Administered Medications: 11:26 Drug: TORadol 30 mg Route: IM; Site: left deltoid; em 12:07 Follow up: Response: No adverse reaction; Pain is decreased em 11:26 Drug: Decadron 10 mg Route: IM; Site: left gluteus; em 12:08 Follow up: Response: No adverse reaction; Pain is decreased em 11: Drug: Valium 5 mg Route: PO; em 12:08 Follow up: Response: No adverse reaction; Pain is decreased em Outcome: 11:43 Discharge ordered by . rn 12:09 Discharged to home ambulatory, with family. em 12: Condition: good 12:09 Discharge instructions given to patient, family, Instructed on discharge instructions, follow up and referral plans. no drinking with medication, no driving heavy equipment, medication usage, Demonstrated understanding of instructions, follow-up care, medications, Prescriptions given X 3. 12:10 Patient left the ED. em Signatures: Brady Turner, INVESTIGATIONS CONSULTANT INVESTIGATIONS CONSULTANT em Migue Adams MD MD rn Calderon, Audri RN RN aa5 Avril Haque RN RN ss
[2018-06-14 12:15] VITALS: TEMP 98.6
[2018-06-14 12:17] VITALS: BP 144/89; O2SAT 99
== END 2018-06-14 12:10 | disposition home or self-care (01) ==
LOC: ER 10:39
DX: S39.012A Strain of muscle, fascia and tendon of lower back, initial encounter (principal); X58.XXXA Exposure to other specified factors, initial encounter; M62.830 Muscle spasm of back; F41.9 Anxiety disorder, unspecified; F32.9 Major depressive disorder, single episode, unspecified; I10 Essential (primary) hypertension; Z88.0 Allergy status to penicillin
CPT/HCPCS: 96372; 99283; J2175